=== PATIENT | male | born 1985 | race Caucasian/White ===

== ENCOUNTER 2025-05-04 14:35 | Emergency (ER) | payer OTHER ==
[~2025-05-04] VITALS: Ht 177.8 cm; Wt 90.7 kg
== END 2025-05-04 17:22 | disposition left against medical advice (07) ==
LOC: ER 14:35
DX: R07.9 Chest pain, unspecified (principal); Z53.29 Procedure and treatment not carried out because of patient's decision for other reasons
CPT/HCPCS: 93005; 93010; 99282-25